=== PATIENT | female | born 1955 | race Caucasian/White ===

== ENCOUNTER 2019-08-07 18:20 | Inpatient (IN) | payer OTHER ==
[2019-08-07] MEDS ORDERED: SODIUM CHLORIDE 0.9% 500 ML INFUS.BAG IV ONE (18:41)
[2019-08-07] MEDS ORDERED: ONDANSETRON 4 MG/2 ML VIAL IVPB ONE ×2 (18:51→22:39)
[2019-08-07] MEDS ORDERED: morphine SULFATE 4 MG/ML VIAL IVPUSH ONE (18:51)
[2019-08-07] MEDS ORDERED: morphine SULFATE 4 MG/ML VIAL ONE ×3 (18:53→22:33)
--- NOTE | 2019-08-07 19:04 | PDOC ---
Attending Attestation - Resident Resident Name: Riley Bolton - ED Attending Attestation I have performed the following: I have examined & evaluated the patient, The case was reviewed & discussed with the resident, I agree w/resident's findings & plan, Exceptions are as noted - HPI HPI: 08/07/19 19:00 She has examined her back with 64-year-old female history of psoriasis, hypertension, previous renal colic here today complaining of severe sudden onset abdominal pain. Patient states that she was feeling nauseous last evening however this a.m. 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 Patient states is very sharp in nature thinks it is different than her previous renal colic. She called her who was going to come to meet her during her drive because she felt the pain was so severe she would not be able to make at home. She pulled over and sat for 45 minutes her was almost to her and she thought that she could make it to the ED so she separately drove herself to the ED. In route patient was incontinent of stool due to severe pain she does have nausea but denies vomiting denies any recent urinary dysuria or hematuria. 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 called to help her exit the car she states that she was incontinent of stool and was embarrassed to get out ears diaphoretic pale and clammy and unable to answer many questions due to the severity of her pain - Physicial Exam PE: 08/07/19 19:02 Patient is awake appears extremely uncomfortable in mild distress she is pale in color cool and clammy lungs are clear bilaterally heart is regular with any murmurs rubs or gallops abdomen is soft there is left lower quadrant and suprapubic tenderness patient is guarding no rebound no CVA tenderness extremities are cool no rashes noted neurologically patient is alert and oriented x3 however she is in extreme pain and unable to answer many questions speech is clear - Medical Decision Making 08/07/19 19:03 64-year-old female history of psoriasis hypertension renal colic here with sudden onset severe abdominal pain precipitated by nausea. Differential includes renal colic, diverticulitis, ovarian pathology due to the presentation of the patient and severity seemingly in moderate distress detox conditions were considered however she does deny any ingestions states she feels safe at home is here with her daughter and who met her here in the ED. Plan CBC CMP lactate IV hydration patient was given morphine for her pain CT abdomen pelvis without contrast was ordered. Focused ED ultrasound was performed there is noted to be mild left hydronephrosis right kidney was unremarkable. Unable to visualize the patient' s aorta bladder was nondistended plan CT abdomen pelvis without contrast to evaluate for possible renal colic
--- NOTE | 2019-08-07 19:10 | PDOC ---
History of Present Illness - General Chief Complaint: Diarrhea Stated Complaint: ABDOMINAL PAIN Time Seen by Provider: 08/07/19 19:00 History Source: Patient, Family ( and daughter at bedside.) Exam Limitations: No Limitations - History of Present Illness Initial Comments: HPI: 64 y/o female presenting to [facility] complaining of severe left lower quadrant abdominal pain that started suddenly while she was driving home from work. Reports the pain was so severe that she was unable to control her bowels and she had diarrhea while driving. Endorses history of nephrolithiasis but states this pain is worse. Denies h/o abdominal surgeries. Has not attempted any relief with medication. Of note, the pt was met in the ambulance bay. She was sitting in the tank wagon driver's seat with feces spread across the seat. Medical Hx: - H/o nephrolithiasis - HTN - HLD Review of Systems: In addition to that documented in the HPI above, the additional ROS was obtained : Constitutional- Denies fevers or chills Head- Denies vision changes ENMT- Denies sore throat CV- Denies chest pain Resp- Denies SOB GI- Endorses nausea without vomiting. - Denies painful urination, hematuria, or increased urinary frequency MSK- Denies recent trauma Skin- Denies new rashes Neuro- Denies new numbness or tingling or weakness Endocrine- Denies polyuria Heme- Denies bleeding or bruising Physical Examination: Constitutional- Well-developed, well-nourished adult female in no acute distress but obvious discomfort. Obese body habitus. Found in car; assisted to hospital bed. Answered all questions appropriately and completely. Head- Normocephalic. No obvious external signs of trauma. Cardiovascular / Chest- Regular rate and regular rhythm. No murmur, rubs, clicks , or gallops. Peripheral pulses- radial pulses full. Respiratory- Breathing unlabored but mildly tachypneic. Equal chest rise and fall. Clear to auscultation bilaterally. No stridor, no wheezing, no rhonchi. Gastrointestinal- abdomen is tender in the LLQ - will not allow direct palpation of the area. Globally, abdomen is soft and nondistended. No pulsatile masses. No overlying skin lesions or obvious signs of trauma. MSK: No midline tenderness or bony deformity on back. Neuro- Alert and oriented x4. Moving all four extremities spontaneously. Skin- Warm, dry, and intact. - No R or L CVA tenderness. Psych- Affect- emotive and tearful. Speech was non-labored, non-pressured. MDM: *Reviewed vital signs, nursing notes, and prior visit documentation (if available). 64 y/o female presenting with sudden onset LLQ pain. Afebrile. Vitals unremarkable for hypotension or tachycardia. Physical exam as described above. Bedside POCUS revealed mild left sided hydronephrosis. ED Attending endorsed pt to oncoming attending. No further resident assigned to encounter. Riley Bolton M.D., PGY2 Emergency Medicine Resident Past History - Past Medical History Allergies/Adverse Reactions: Allergies Allergy/AdvReac Type Severity Reaction Status Date / Time Sulfa (Sulfonamide Allergy Unknown Verified 08/07/19 19:01 Antibiotics) Home Medications: Ambulatory Orders Amlodipine Besylate [Norvasc -] 5 mg PO DAILY 08/07/19 Duloxetine HCl [Cymbalta] 90 mg PO DAILY 08/07/19 Rosuvastatin Calcium [Crestor] 5 mg PO DAILY 08/07/19 COPD: No HTN: Yes Hypercholesterolemia: Yes Kidney Stones: Yes Psychiatric Problems: Yes - Psycho Social/Smoking Cessation Hx Smoking History: Never smoked Hx Alcohol Use: No Drug/Substance Use Hx: No *Physical Exam - Vital Signs Last Vital Signs Temp Pulse Resp BP Pulse Ox 97.4 F L 81 20 154/81 100 08/07/19 18:39 08/07/19 18:39 08/07/19 18:39 08/07/19 18:39 08/07/19 18:39 ED Treatment Course - LABORATORY CBC & Chemistry Diagram: 08/07/19 18:47 08/07/19 18:47 - Medications Given in the ED: ED Medications Discontinued Medications Generic Name Dose Route Start Last Admin Trade Name Freq PRN Reason Stop Dose Admin Morphine Sulfate 4 mg 08/07/19 18:51 08/07/19 19:02 Morphine Sulfate IVPUSH 08/07/19 18:52 4 mg ONCE ONE Administration Ondansetron HCl 8 mg 08/07/19 18:51 08/07/19 19:02 Zofran Injection IVPB 08/07/19 18:52 8 mg ONCE ONE Administration Sodium Chloride 1,000 ml 08/07/19 18:41 08/07/19 19:04 Normal Saline - IV 08/07/19 18:42 1,000 ml ONCE ONE Administration Discharge - Discharge Information Problems reviewed: Yes Clinical Impression/Diagnosis: LLQ abdominal pain Condition: Stable - Follow up/Referral Referrals: Corbin Guajardo MD [Primary Care Provider] - - Patient Discharge Instructions - Post Discharge Activity
[2019-08-07 19:18] LABS: BASO % 0.2 % (0-2.0); EOS % 1.6 % (0-4.5); HEMATOCRIT 42.4 % (32.4-45.2); HEMOGLOBIN 14.3 GM/dl (10.7-15.3); LYMPH % 31.7 % (8-40); MCHC 33.7 g/dl (32.0-36.0); MEAN CELL VOLUME 89.1 fl (80-96); MEAN PLT VOLUME 8.1 fl (7.5-11.1); MONO % 7.5 % (3.8-10.2); PLATELET COUNT 311 K/MM3 (134-434); RBC 4.76 M/mm3 (3.60-5.2); RDW 12.1 % (11.6-15.6); WHITE BLOOD COUNT 8.8 K/mm3 (4.0-10.8)
[2019-08-07 19:23] LABS: ALBUMIN 4.4 g/dl (3.4-5.0); BILIRUBIN,TOTAL 0.5 mg/dl (0.2-1); CALCIUM 9.5 mg/dl (8.5-10); CREATININE 0.8 mg/dl (0.55-1.3); POTASSIUM 3.7 mmol/L (3.5-5.1); TOT PROT 7.6 g/dl (6.4-8.2)
[2019-08-07 19:27] LABS: INR 1.05 (0.82-1.09); PROTHROMBIN TIME (PATIENT) 11.7 SEC (10.2-13.0)
[2019-08-07] MEDS ORDERED: KETOROLAC TROMETHAMINE 30 MG/1 ML VIAL IVPUSH ONE ×2 (19:27→19:50)
[2019-08-07] MEDS ORDERED: KETOROLAC TROMETHAMINE 30 MG/1 ML VIAL ONE (19:30)
--- NOTE | 2019-08-07 19:53 | PDOC ---
*Physical Exam - Vital Signs Last Vital Signs Temp Pulse Resp BP Pulse Ox 97.4 F L 81 20 154/81 100 08/07/19 18:39 08/07/19 18:39 08/07/19 18:39 08/07/19 18:39 08/07/19 18:39 08/08/19 19:00\ Care of this patient was transferred to [place] from Dr. marcum at 1900 hrs. This patient is a 64-year-old female with history of renal colic in the past who comes in complaining of left flank pain. Patient has a work-up that is pending. 22:00 Patient's work-up is complete including a CAT scan however the CAT scan was read as a possible renal vein thrombosis. So a CAT scan will need to be repeated with contrast. 01:30 CAT scan was repeated and there is no evidence of renal vein thrombosis. Patient does have a left-sided UVJ stone and some with interval increase in the left perinephric fluid and delayed contrast excretion from the left kidney consistent with obstruction. In addition to that there is a moderate amount of bacteria even though patient does not have a white cell count fever or signs of systemic infection patient will be given some ceftriaxone and she is at increased risk for pyelonephritis. ED Treatment Course - LABORATORY CBC & Chemistry Diagram: 08/07/19 18:47 08/07/19 18:47 - ADDITIONAL ORDERS Additional order review: Laboratory Results 08/07/19 08/07/19 08/07/19 18:47 18:47 18:47 PT with INR 11.7 INR 1.05 PTT (Actin FS) 39.1 H Sodium 138 Potassium 3.7 Chloride 107 Carbon Dioxide 22 Anion Gap 9 BUN 19.0 H Creatinine 0.8 Est GFR (CKD-EPI)AfAm 90.94 Est GFR (CKD-EPI)NonAf 78.46 Random Glucose 148 H Calcium 9.5 Total Bilirubin 0.5 AST 29 ALT 43 Alkaline Phosphatase 83 Total Protein 7.6 Albumin 4.4 08/07/19 18:47 RBC 4.76 MCV 89.1 MCHC 33.7 RDW 12.1 MPV 8.1 Neutrophils % 59.0 Lymphocytes % 31.7 Monocytes % 7.5 Eosinophils % 1.6 Basophils % 0.2 - Medications Given in the ED: ED Medications Discontinued Medications Generic Name Dose Route Start Last Admin Trade Name Freq PRN Reason Stop Dose Admin Ketorolac Tromethamine 30 mg 08/07/19 19:27 08/07/19 19:32 Toradol Injection - IVPUSH 08/07/19 19:28 30 mg ONCE ONE Administration Morphine Sulfate 4 mg 08/07/19 18:51 08/07/19 19:02 Morphine Sulfate IVPUSH 08/07/19 18:52 4 mg ONCE ONE Administration Ondansetron HCl 8 mg 08/07/19 18:51 08/07/19 19:02 Zofran Injection IVPB 08/07/19 18:52 8 mg ONCE ONE Administration Sodium Chloride 1,000 ml 08/07/19 18:41 08/07/19 19:04 Normal Saline - IV 08/07/19 18:42 1,000 ml ONCE ONE Administration ED Progress Note - Progress Note Progress Note: 08/07/19 19:51 Care of this patient was transferred to me from Dr. Rico at 1900 hrs. Patient is a 64-year-old female who comes in complaining of left flank and left lower quadrant abdominal pain. Patient said she has a history of multiple kidney stones in the past and similar pain but worse than usual. Patient has work-up pending including CBC, comp, UA, CAT scan. Patient was given morphine and Zofran with some improvement of her symptoms I did well medicate her with some Toradol as she still is uncomfortable. My Exam: General: Well-nourished well-developed individual, moderate distress Chest: Nontender to palpation Cardiac: S1-S2 normal, regular rate and rhythm, no murmurs rubs or gallops Respiratory: Lungs clear to auscultation bilateral Abdomen: Soft, nondistended, normal bowel sounds, there is tenderness on palpation left leg and left lower quadrant. There is no guarding or rebound Extremities: Warm, dry, no cyanosis, clubbing, or edema Skin: No rashes Neuro: Alert and oriented x3, CN II - XII intact, nonfocal exam with normal strength, normal sensation, normal reflexes, normal gait, Psych: Normal mood and affect 22:00 Patient's work-up is complete including a CAT scan however the CAT scan was read as a possible renal vein thrombosis. So a CAT scan will need to be repeated with contrast. 01:30 CAT scan was repeated and there is no evidence of renal vein thrombosis. Patient does have a left-sided UVJ stone and some with interval increase in the left perinephric fluid and delayed contrast excretion from the left kidney consistent with obstruction. In addition to that there is a moderate amount of bacteria even though patient does not have a white cell count fever or signs of systemic infection patient will be given some ceftriaxone and she is at increased risk for pyelonephritis. 08/08/19 02:18 Discussed CAT scans findings with the urology on-call from [facility]. He concurs that patient will not likely need any additional intervention other than good pain management and good hydration. Patient will be continued to be hydrated via IV and her pain managed via NSAIDs and morphine and nausea via Zofran. Patient admitted to the hospital. Discharge - Discharge Information Problems reviewed: Yes Clinical Impression/Diagnosis: LLQ abdominal pain, Renal colic on left side, Cystitis Condition: Stable - Admission Yes - Additional Discharge Information Prescriptions: Hydrocodone/Acetaminophen [Vicodin Es 7.5-300 mg Tablet] 1 each PO TID #20 tablet MDD 8 Ondansetron [Zofran *Odt*] 4 mg SL TID #21 od.tablet - Follow up/Referral Referrals: Corbin Guajardo MD [Primary Care Provider] - - Patient Discharge Instructions - Post Discharge Activity
[2019-08-07] MEDS ORDERED: morphine CARPU-JECT 2 MG/1 ML DISP.SYRIN IVPUSH ONE ×3 (19:54→22:31)
[2019-08-07 21:42] LABS: COCAINE, UR NEGATIVE ng/ml (CUTOFF=300); METHADONE, UR NEGATIVE ng/ml (CUTOFF=300); PHENCYCLIDINE,URINE NEGATIVE ng/ml (CUTOFF=25); URINE AMPHETAMINES NEGATIVE ng/ml (CUTOFF=500); URINE BARBITURATES NEGATIVE ng/ml (CUTOFF=200); URINE BENZODIAZEPINES NEGATIVE ng/ml (CUTOFF=200)
[2019-08-07 21:43] LABS: OPIATES, URI POSITIVE ng/ml (CUTOFF=300)
[2019-08-07] MEDS ORDERED: SODIUM CHLORIDE 1,000 ML IV ONE (22:15)
[2019-08-07] MEDS ORDERED: METOCLOPRAMIDE HCL INJECTION 10 MG/2 ML VIAL IVPUSH ONE (22:30)
[2019-08-07] MEDS ORDERED: METOCLOPRAMIDE HCL INJECTION 10 MG/2 ML VIAL ONE (22:33)
[2019-08-07] MEDS ORDERED: ONDANSETRON 4 MG/2 ML VIAL ONE (22:39)
[2019-08-07 22:41] LABS: AMORP URATES 2+ /hpf (NONE SEEN); EPITHELIAL CELLS FEW /hpf
[2019-08-07] MEDS ORDERED: IBUPROFEN 400 MG TABLET (FP) PO ONE (22:43)
[2019-08-08] MEDS ORDERED: morphine CARPU-JECT 2 MG/1 ML DISP.SYRIN IVPUSH ONE (01:32)
[2019-08-08] MEDS ORDERED: morphine SULFATE 4 MG/ML VIAL ONE (01:34)
[2019-08-08] MEDS ORDERED: CEFTRIAXONE 1,000 MG in DEXTROSE 5%-WATER - 50 ML IVPB ONE (01:43)
[2019-08-08] MEDS ORDERED: cefTRIAXone SODIUM 1 GM VIAL ONE (01:53)
[2019-08-08] MEDS ORDERED: KETOROLAC TROMETHAMINE 30 MG/1 ML VIAL IVPUSH ONE (01:58)
[2019-08-08] MEDS ORDERED: KETOROLAC TROMETHAMINE 30 MG/1 ML VIAL ONE (01:59)
[2019-08-08] MEDS: SODIUM CHLORIDE 1,000 ML IV SCH (02:30)
[2019-08-08] MEDS ORDERED: ACETAMINOPHEN 325 MG TABLET (FP) PO PRN (13:36)
--- NOTE | 2019-08-08 13:51 | HP ---
CHIEF COMPLAINT: LLQ pain PCP: Corbin Martinez HISTORY OF PRESENT ILLNESS: This is a 64 y/o female with primary history significant for nephrolithiasis, HTN, HLD and psoriatic arthritis, who presents to the ER c/o sudden severe LLQ pain associated with diarrhea,while driving to home from work. Pt reports that the pain was so severe that she was unable to control her bowels and she had diarrhea while driving. Denies CRUZ, dizziness, fever, chills, cp, sob, palpitations, dysuria or hematochezia. Pt reports urinary frequency and hematuria. Pt states that she has not being feeling well for the past few days , reports nausea but no vomiting. Denies any sick contact. ER course was notable for: (1)CT abdomen/ pelvis: possible renal vein thrombosis. Mild left hydronephrosis , poss obstructing calculus, affty liver and inguinal hernia. (2)CTA : No evidence of renal vein thrombosis. Patient does have a left-sided UVJ stone and some with interval increase in the left perinephric fluid and delayed contrast excretion from the left kidney consistent with obstruction. (3)lactic acid 2.7 , afebrile, wbc 8.8 (4) UA with + blood and pyuria Recent Travel:No PAST MEDICAL HISTORY: As mentioned above PAST SURGICAL HISTORY: Multiple lithotripises Parathyroid sx 3 yrs ago Social History: Smoking:No Alcohol: None Drugs: None Family HX: Father- DM Mother - CAD Siblings healthy Allergies Sulfa (Sulfonamide Antibiotics) Allergy (Unknown, Verified 08/07/19 19:01) HOME MEDICATIONS: Home Medications Medication Instructions Recorded Amlodipine Besylate [Norvasc -] 5 mg PO DAILY 08/07/19 Duloxetine HCl [Cymbalta] 90 mg PO DAILY 08/07/19 Rosuvastatin Calcium [Crestor] 5 mg PO DAILY 08/07/19 Hydrocodone/Acetaminophen [Vicodin 1 each PO TID #20 tablet MDD 8 08/08/19 Es 7.5-300 mg Tablet] Ondansetron [Zofran *Odt*] 4 mg SL TID #21 od.tablet 08/08/19 REVIEW OF SYSTEMS CONSTITUTIONAL: Absent: fever, chills, diaphoresis, generalized weakness, malaise, loss of appetite, weight change HEENT: Absent: rhinorrhea, nasal congestion, throat pain, throat swelling, difficulty swallowing, mouth swelling, ear pain, eye pain, visual changes CARDIOVASCULAR: Absent: chest pain, syncope, palpitations, irregular heart rate, lightheadedness , peripheral edema RESPIRATORY: Absent: cough, shortness of breath, dyspnea with exertion, orthopnea, wheezing, stridor, hemoptysis GASTROINTESTINAL: Absent: abdominal pain, abdominal distension, nausea, vomiting, diarrhea, constipation, melena, hematochezia GENITOURINARY: Absent: dysuria, frequency, urgency, hesitancy, hematuria, flank pain, genital pain MUSCULOSKELETAL: Absent: myalgia, arthralgia, joint swelling, back pain, neck pain SKIN: Absent: rash, itching, pallor HEMATOLOGIC/IMMUNOLOGIC: Absent: easy bleeding, easy bruising, lymphadenopathy, frequent infections ENDOCRINE: Absent: unexplained weight gain, unexplained weight loss, heat intolerance, cold intolerance NEUROLOGIC: Absent: headache, focal weakness or paresthesias, dizziness, unsteady gait, seizure, mental status changes, bladder or bowel incontinence PSYCHIATRIC: Absent: anxiety, depression, suicidal or homicidal ideation, hallucinations. PHYSICAL EXAMINATION Vital Signs - 24 hr 08/07/19 08/08/19 08/08/19 18:39 02:10 06:58 Temperature 97.4 F L 97.3 F L 97.9 F Pulse Rate 81 Pulse Rate [ 94 H 98 H Radial] Respiratory 20 20 18 Rate Blood Pressure 154/81 Blood Pressure 167/84 142/87 [Arm] O2 Sat by Pulse 100 98 95 Oximetry (%) 08/08/19 08:04 Temperature 97.8 F Pulse Rate Pulse Rate [ 93 H Radial] Respiratory 17 Rate Blood Pressure Blood Pressure 137/72 [Arm] O2 Sat by Pulse 99 Oximetry (%) GENERAL: Awake, alert, and fully oriented, in no acute distress. HEAD: Normal with no signs of trauma. EYES: Pupils equal, round and reactive to light, extraocular movements intact, sclera anicteric, conjunctiva clear. No lid lag. EARS, NOSE, THROAT: Ears normal, nares patent, oropharynx clear without exudates. Moist mucous membranes. NECK: Normal range of motion, supple without lymphadenopathy, JVD, or masses. LUNGS: Breath sounds equal, clear to auscultation bilaterally. No wheezes, and no crackles. No accessory muscle use. HEART: Regular rate and rhythm, normal S1 and S2 without murmur, rub or gallop. ABDOMEN: Soft, nontender, not distended, normoactive bowel sounds, no guarding, no rebound, no masses. No hepatomegaly or splenomegaly. MUSCULOSKELETAL: Normal range of motion at all joints. No bony deformities or tenderness. No CVA tenderness. UPPER EXTREMITIES: 2+ pulses, warm, well-perfused. No cyanosis. No clubbing. No peripheral edema. LOWER EXTREMITIES: 2+ pulses, warm, well-perfused. No calf tenderness. No peripheral edema. NEUROLOGICAL: Cranial nerves II-XII intact. Normal speech. Normal gait. PSYCHIATRIC: Cooperative. Good eye contact. Appropriate mood and affect. SKIN: Warm, dry, normal turgor, no rashes or lesions noted, normal capillary refill. Laboratory Results - last 24 hr 08/07/19 08/07/19 08/07/19 18:47 18:47 18:47 WBC 8.8 RBC 4.76 Hgb 14.3 Hct 42.4 MCV 89.1 MCH 30.0 MCHC 33.7 RDW 12.1 Plt Count 311 MPV 8.1 Absolute Neuts (auto) 5.2 Neutrophils % 59.0 Lymphocytes % 31.7 Monocytes % 7.5 Eosinophils % 1.6 Basophils % 0.2 PT with INR INR PTT (Actin FS) Sodium 138 Potassium 3.7 Chloride 107 Carbon Dioxide 22 Anion Gap 9 BUN 19.0 H Creatinine 0.8 Est GFR (CKD-EPI)AfAm 90.94 Est GFR (CKD-EPI)NonAf 78.46 Random Glucose 148 H Lactic Acid Calcium 9.5 Total Bilirubin 0.5 AST 29 ALT 43 Alkaline Phosphatase 83 Total Protein 7.6 Albumin 4.4 Lipase Urine Color Urine Appearance Urine pH Urine Protein Urine Glucose (UA) Urine Ketones Urine Blood Urine Nitrite Urine Bilirubin Urine Urobilinogen Ur Leukocyte Esterase Urine RBC Urine WBC Ur Transition Epith Cell Amorphous Urates Urine Bacteria Salicylates < 1.7 L Opiates Screen Methadone Screen Acetaminophen Barbiturate Screen Phencyclidine Screen Ur Amphetamines Screen MDMA (Ecstasy) Screen Benzodiazepines Screen Cocaine Screen U Marijuana (THC) Screen Blood Type Antibody Screen 08/07/19 08/07/19 08/07/19 18:47 18:47 18:47 WBC RBC Hgb Hct MCV MCH MCHC RDW Plt Count MPV Absolute Neuts (auto) Neutrophils % Lymphocytes % Monocytes % Eosinophils % Basophils % PT with INR INR PTT (Actin FS) Sodium Potassium Chloride Carbon Dioxide Anion Gap BUN Creatinine Est GFR (CKD-EPI)AfAm Est GFR (CKD-EPI)NonAf Random Glucose Lactic Acid 2.7 H* Calcium Total Bilirubin AST ALT Alkaline Phosphatase Total Protein Albumin Lipase 95 Urine Color Urine Appearance Urine pH Urine Protein Urine Glucose (UA) Urine Ketones Urine Blood Urine Nitrite Urine Bilirubin Urine Urobilinogen Ur Leukocyte Esterase Urine RBC Urine WBC Ur Transition Epith Cell Amorphous Urates Urine Bacteria Salicylates Opiates Screen Methadone Screen Acetaminophen Cancelled Barbiturate Screen Phencyclidine Screen Ur Amphetamines Screen MDMA (Ecstasy) Screen Benzodiazepines Screen Cocaine Screen U Marijuana (THC) Screen Blood Type Antibody Screen 08/07/19 08/07/19 08/07/19 18:47 18:47 18:47 WBC RBC Hgb Hct MCV MCH MCHC RDW Plt Count MPV Absolute Neuts (auto) Neutrophils % Lymphocytes % Monocytes % Eosinophils % Basophils % PT with INR 11.7 INR 1.05 PTT (Actin FS) 39.1 H Sodium Potassium Chloride Carbon Dioxide Anion Gap BUN Creatinine Est GFR (CKD-EPI)AfAm Est GFR (CKD-EPI)NonAf Random Glucose Lactic Acid Calcium Total Bilirubin AST ALT Alkaline Phosphatase Total Protein Albumin Lipase Urine Color Urine Appearance Urine pH Urine Protein Urine Glucose (UA) Urine Ketones Urine Blood Urine Nitrite Urine Bilirubin Urine Urobilinogen Ur Leukocyte Esterase Urine RBC Urine WBC Ur Transition Epith Cell Amorphous Urates Urine Bacteria Salicylates Opiates Screen Methadone Screen Acetaminophen Barbiturate Screen Phencyclidine Screen Ur Amphetamines Screen MDMA (Ecstasy) Screen Benzodiazepines Screen Cocaine Screen U Marijuana (THC) Screen Blood Type A POSITIVE Antibody Screen Negative 08/07/19 08/07/19 08/07/19 19:45 19:45 22:25 WBC RBC Hgb Hct MCV MCH MCHC RDW Plt Count MPV Absolute Neuts (auto) Neutrophils % Lymphocytes % Monocytes % Eosinophils % Basophils % PT with INR INR PTT (Actin FS) Sodium Potassium Chloride Carbon Dioxide Anion Gap BUN Creatinine Est GFR (CKD-EPI)AfAm Est GFR (CKD-EPI)NonAf Random Glucose Lactic Acid 1.3 Calcium Total Bilirubin AST ALT Alkaline Phosphatase Total Protein Albumin Lipase Urine Color Yellow Urine Appearance Clear Urine pH 7.0 Urine Protein Negative Urine Glucose (UA) Negative Urine Ketones Negative Urine Blood 3+ H Urine Nitrite Negative Urine Bilirubin Negative Urine Urobilinogen 0.2 Ur Leukocyte Esterase 1+ Urine RBC 20-30 Urine WBC 10-20 Ur Transition Epith Cell Few Amorphous Urates 2+ Urine Bacteria Moderate Salicylates Opiates Screen Positive A* Methadone Screen Negative Acetaminophen Barbiturate Screen Negative Phencyclidine Screen Negative Ur Amphetamines Screen Negative MDMA (Ecstasy) Screen Negative Benzodiazepines Screen Negative Cocaine Screen Negative U Marijuana (THC) Screen Negative Blood Type Antibody Screen ASSESSMENT/PLAN: This is a 64 y/o female with primary history significant for nephrolithiasis, HTN, HLD and psoriatic arthritis, who presents to the ER c/o sudden severe LLQ pain associated with diarrhea; Found to have UTI and an obstructing left-sided UVJ stone *Abnormal UA -will cont on Ceftriaxone - afebrile with no leukocytosis -will f/u on culture report -lactic acidosis normalized * Renal stone- obstructing left-sided UVJ stone -CTA : preliminary left kidney consistent with obstruction. - urology consult requested - IV hydration - pain control * HTN - will cont on home meds * HDL - will cont on home dose Crestor * VTE: Hold off Heparin in view of hematuria, SCD's Visit type - Emergency Visit Emergency Visit: Yes ED Registration Date: 08/08/19 Care time: The patient presented to the Emergency Department on the above date and was hospitalized for further evaluation of their emergent condition. - New Patient This patient is new to me today: Yes Date on this admission: 08/08/19 - Critical Care Critical Care patient: No
[2019-08-08] MEDS ORDERED: SODIUM CHLORIDE 1,000 ML IV SCH (14:00)
[2019-08-08 16:10] VITALS: BMI 33.1
[2019-08-08] MEDS: amLODIPine BESYLATE 5 MG TABLET (FP) PO SCH (17:20)
[2019-08-08] MEDS: HEPARIN NA (PORCINE) 5,000 UNITS/ML 1ML VIAL SQ SCH (21:49)
[2019-08-08] MEDS ORDERED: ROSUVASTATIN CA 10 MG TABLET (FP) PO SCH (22:00)
[2019-08-09] MEDS ORDERED: CEFTRIAXONE 1 GM in DEXTROSE 5%-WATER - 50 ML IVPB SCH (01:00)
[2019-08-09] MEDS ORDERED: CEFTRIAXONE 1 G/50 ML PREMIX 50 ML IVPB SCH ×2 (01:00→01:15)
[2019-08-09] MEDS: SODIUM CHLORIDE 1,000 ML IV SCH (03:00)
[2019-08-09 05:44] VITALS: BP 147/72; PULSE 80; TEMP 98.2
[2019-08-09] MEDS: HEPARIN NA (PORCINE) 5,000 UNITS/ML 1ML VIAL SQ SCH (06:30)
[2019-08-09 09:03] LABS: BASO % 0.2 % (0-2.0); EOS % 2.7 % (0-4.5); HEMATOCRIT 33.5 % (32.4-45.2); HEMOGLOBIN 11.4 GM/dl (10.7-15.3); LYMPH % 48.2 % (8-40); MCH 30.4 pg (25.7-33.7); MCHC 34.1 g/dl (32.0-36.0); MEAN PLT VOLUME 8.3 fl (7.5-11.1); NEUT % 41.9 % (42.8-82.8); PLATELET COUNT 218 K/MM3 (134-434); RBC 3.77 M/mm3 (3.60-5.2); RDW 12.2 % (11.6-15.6); WHITE BLOOD COUNT 5.3 K/mm3 (4.0-10.8)
[2019-08-09 09:22] LABS: CREATININE 0.6 mg/dl (0.55-1.3); POTASSIUM 3.6 mmol/L (3.5-5.1)
[2019-08-09] MEDS ORDERED: DULoxetine HCL 30 MG CAPSULE.DR PO SCH (10:00)
[2019-08-09] MEDS: amLODIPine BESYLATE 5 MG TABLET (FP) PO SCH (10:53)
--- NOTE | 2019-08-09 10:56 | DS ---
Physical Exam: SUBJECTIVE: Patient seen and examined, pt denies pain, n/v, pt reports she passed stone, feeling well, afebrile no leukocytosis. pt will follow up with Urologist this week. OBJECTIVE: Vital Signs Period Temp Pulse Resp BP Sys/Banks Pulse Ox Last 24 Hr 97.8 F-98.9 F 80-100 16-19 134-171/68-88 94-98 PHYSICAL EXAM GENERAL: The patient is awake, alert, and fully oriented, in no acute distress. HEAD: Normal with no signs of trauma. EYES: PERRL, extraocular movements intact, sclera anicteric, conjunctiva clear. ENT: Ears normal, nares patent, oropharynx clear without exudates, moist mucous membranes. NECK: Trachea midline, full range of motion, supple. LUNGS: Breath sounds equal, clear to auscultation bilaterally, no wheezes, no crackles, no accessory muscle use. HEART: Regular rate and rhythm, S1, S2 without murmur, rub or gallop. ABDOMEN: Soft, nontender, nondistended, normoactive bowel sounds, no guarding, no rebound, no hepatosplenomegaly, no masses. EXTREMITIES: 2+ pulses, warm, well-perfused, no edema. NEUROLOGICAL: Cranial nerves II through XII grossly intact. Normal speech, gait not observed. PSYCH: Normal mood, normal affect. SKIN: Warm, dry, normal turgor, no rashes or lesions noted. LABS Laboratory Results - last 24 hr 08/09/19 08/09/19 07:00 07:00 WBC 5.3 RBC 3.77 Hgb 11.4 Hct 33.5 D MCV 89.0 MCH 30.4 MCHC 34.1 RDW 12.2 Plt Count 218 MPV 8.3 Absolute Neuts (auto) 2.2 Neutrophils % 41.9 L Lymphocytes % 48.2 H Monocytes % 7.0 Eosinophils % 2.7 Basophils % 0.2 Sodium 143 Potassium 3.6 Chloride 106 Carbon Dioxide 25 Anion Gap 12 BUN 11.0 Creatinine 0.6 Est GFR (CKD-EPI)AfAm 112.43 Est GFR (CKD-EPI)NonAf 97.01 Random Glucose 100 Calcium 9.0 HOSPITAL COURSE: Date of Admission:08/08/19 Date of Discharge: 08/09/19 This is a 64 y/o female with primary history significant for nephrolithiasis, HTN, HLD and psoriatic arthritis, who presents to the ER c/o sudden severe LLQ pain associated with diarrhea; Found to have UTI and an obstructing left-sided UVJ stone *Abnormal UA -received Ceftriaxone will switch to PO Vantin 100mg Q12hrs x 7 days - afebrile with no leukocytosis -urine cx prelim lactose fermenting neg bacili * Renal stone- obstructing left-sided UVJ stone -CTA : preliminary left kidney consistent with obstruction. - urology follow up as oupt - IV hydration - pain resolved * HTN - cont on home meds * HDL -cont on home dose Crestor Minutes to complete discharge: 30 Discharge Summary Problems reviewed: Yes Reason For Visit: ABDOMINAL PAIN Current Active Problems Cystitis (Acute) LLQ abdominal pain (Acute) Renal colic on left side (Acute) - Instructions Diet, Activity, Other Instructions: please complete antibiotics for UTI Follow up with PCP and Urologist this week. Referrals: Corbin Guajardo MD [Primary Care Provider] - Disposition: HOME - Home Medications Comprehensive Discharge Medication List: Ambulatory Orders Amlodipine Besylate [Norvasc -] 5 mg PO DAILY 08/07/19 Duloxetine HCl [Cymbalta] 90 mg PO DAILY 08/07/19 Rosuvastatin Calcium [Crestor] 5 mg PO DAILY 08/07/19 Hydrocodone/Acetaminophen [Vicodin Es 7.5-300 mg Tablet] 1 each PO TID #20 tablet MDD 8 08/08/19 Ondansetron [Zofran *Odt*] 4 mg SL TID #21 od.tablet 08/08/19 Cefpodoxime Proxetil [Vantin -] 100 mg PO BID #14 tablet 08/09/19 This patient is new to me today: Yes Date on this admission: 08/09/19 Emergency Visit: Yes ED Registration Date: 08/08/19 Care time: The patient presented to the Emergency Department on the above date and was hospitalized for further evaluation of their emergent condition. Critical Care patient: No - Discharge Referral Referred to [facility] Med P.C.: No
--- NOTE | 2019-08-10 11:02 | EKG ---
Test Reason : Blood Pressure : / mmHG Vent. Rate : 086 BPM Atrial Rate : 086 BPM P-R Int : 176 ms QRS Dur : 094 ms QT Int : 400 ms P-R-T Axes : 061 042 068 degrees QTc Int : 478 ms NORMAL SINUS RHYTHM NORMAL ECG NO PREVIOUS ECGS AVAILABLE Confirmed by OSMIN LOPEZ, DARIAN ([id number]) on 08/10/2019 11:02:21 AM Referred By: DR KONG Confirmed By:DARIAN SOLORIO MD
--- NOTE | 2019-08-11 09:35 | PDOC ---
Patient Follow-up (Call Back) - Post ED Follow - Up Disposition at time of original discharge: HOME - Disposition Additional Instructions/Notes: Received call from nurse at Dr. Segal's office in [place]. Requested patient's urine culture result. Results of urine culture performed August 08, [address] Segal at [phone]. The culture showed 20-30,000 colonies of E. coli, sensitive to everything but ampicillin/Augmentin,
== END 2019-08-09 12:30 | disposition home or self-care (01) | DRG 690 ==
LOC: SUPCPDRO 18:20 → FER 18:20 → FM/S 08-08 02:20 → FER 08-08 02:20 → FM/S 08-08 02:20
PROVIDERS: ADMIT Internal Medicine; ATTEND Nurse Practitioner Family
DX: N30.01 Acute cystitis with hematuria (principal); N13.6 Pyonephrosis; R10.32 Left lower quadrant pain; R19.7 Diarrhea, unspecified; I10 Essential (primary) hypertension; E78.5 Hyperlipidemia, unspecified; E66.9 Obesity, unspecified; Z68.33 Body mass index [BMI] 33.0-33.9, adult
CPT/HCPCS: 36415; 74175-TC; 74176-TC; 80048; 80053; 80307; 81003; 81015; 83605; 83690; 85025; 85610; 85730; 86850; 86900; 86901; 87086; 87186; 93005; 99284-25; J1644; J7030